=== PATIENT | male | born 2000 | race Two or more races ===

== ENCOUNTER 2019-09-17 10:09 | Emergency (ER) | payer BC, OTHER ==
[~2019-09-17] VITALS: Ht 172.7 cm; Wt 61.2 kg
[2019-09-17] MEDS ORDERED: SODIUM CHLORIDE 0.9% 1,000 ML IVB ONE (10:20)
[2019-09-17] MEDS ORDERED: MORPHINE SULFATE 4 MG/ML SYR/VIAL IV ONE (10:30)
[2019-09-17] MEDS ORDERED: ONDANSETRON HCL 4 MG/2 ML VIAL IV ONE (10:30)
[2019-09-17 10:48] LABS: Basophils # (auto) 0 uL; Basophils % (auto) 0.4 % (0.0-2.0); Eosinophils # (auto) 0.1 uL; Eosinophils % (auto) 1.3 % (0.0-7.0); Hematocrit 50.5 % (41.0-53.0); Hemoglobin 17.6 g/dL (13.5-17.5); Lymphocytes # (auto) 1.7 uL; Lymphocytes % (auto) 33.2 % (10.0-50.0); Mean Corpuscular Hemoglobin 29.8 pg (28.0-32.0); Mean Corpuscular Hgb Conc. 34.9 g/dL (32.0-36.0); Mean Corpuscular Volume 85.3 fL (80.0-100.0); Monocytes # (auto) 0.4 uL; Monocytes % (auto) 8.6 % (0.0-12.0); Neutrophils # (auto) 2.8 uL; Neutrophils % (auto) 56.5 % (37.0-80.0); Nucleated Red Blood Cells % 0.6 %; Platelet Count (auto) 176 10^3/uL (140-450); Red Blood Cells 5.92 10^6/uL (4.5-5.90); Red Cell Distribution Width 13.4 % (11.8-14.3)
[2019-09-17 11:23] LABS: Albumin 4.7 g/dL (3.4-5.0); Potassium 3.8 mmol/L (3.5-5.1)
[2019-09-17 11:30] LABS: BUN/Creatinine Ratio 20.5; Bilirubin, Total 1.1 mg/dL (0.2-1.0); Calcium 9.2 mg/dL (8.5-10.1); Total Protein 8.5 g/dL (6.4-8.2)
[2019-09-17] MEDS ORDERED: IOHEXOL 300 MG/ML 100ML BOTTLE IJ ONE (11:38)
[2019-09-17 12:05] VITALS: BP 130/68
[2019-09-17 12:08] LABS: Urine WBC None Seen /hpf (0 - 3)
[2019-09-17 12:19] LABS: Urine Bacteria NONE SEEN /hpf (None Seen); Urine Blood Negative /uL (Negative); Urine Specific Gravity 1.017 (1.001-1.035)
== END 2019-09-17 12:30 | disposition home or self-care (01) ==
LOC: ER 10:09
DX: R10.32 Left lower quadrant pain (principal)
CPT/HCPCS: 36415; 74177; 80053; 81001; 83690; 85025; 96374; 96375; 99284; J2270; J2405; J7030; Q9967

== ENCOUNTER 2023-09-18 05:22 | Emergency (ER) | payer SELFPAY ==
[~2023-09-18] VITALS: Ht 172.7 cm; Wt 64.0 kg
[2023-09-18 07:41] VITALS: BP 142/90; PULSE 64; RESP 16; TEMP 98.2; O2SAT 96
[2023-09-18] MEDS ORDERED: ERY05OO OP (08:00)
== END 2023-09-18 08:09 | disposition home or self-care (01) ==
LOC: ER 05:22
DX: H10.9 Unspecified conjunctivitis (principal)